=== PATIENT | male | born 1995 | race African-American/Black ===

== ENCOUNTER 2017-06-07 22:13 | Emergency (ER) | payer OTHER ==
[~2017-06-07] VITALS: Ht 182.9 cm; Wt 104.5 kg
[2017-06-07 22:15] VITALS: BP 141/85; TEMP 99.5
[2017-06-07] MEDS ORDERED: PROVENTIL0.09 MG/A1 IH (22:18)
[2017-06-07] MEDS ORDERED: ZYRTEC 10MG10 MG PO (22:18)
[2017-06-07 22:40] VITALS: PULSE 61
== END 2017-06-07 22:46 | disposition home or self-care (01) ==
LOC: COL.ER 22:13
DX: S30.862A Insect bite (nonvenomous) of penis, initial encounter (principal); J45.909 Unspecified asthma, uncomplicated; Z98.818 Other dental procedure status; Z98.890 Other specified postprocedural states; W57.XXXA Bitten or stung by nonvenomous insect and other nonvenomous arthropods, initial encounter